=== PATIENT | female | born 1970 | race Two or more races ===

== ENCOUNTER 2021-07-27 15:23 | Emergency (ER) | payer OTHER ==
[~2021-07-27] VITALS: Ht 160 cm; Wt 74.8 kg
[~2021-07-27 15:23] MED LIST: VALTREX1000 MG; ZOLOFT100 MG
[2021-07-27] MEDS ORDERED: FLONASE16 GM NASAL (17:54)
[2021-07-27] MEDS ORDERED: SINGULAIR 10MG10 MG PO (17:54)
== END 2021-07-27 17:58 | disposition home or self-care (01) ==
LOC: ER 15:23
DX: J00 Acute nasopharyngitis [common cold] (principal); Z20.822 Contact with and (suspected) exposure to COVID-19

== ENCOUNTER 2021-08-25 10:23 | Emergency (ER) | payer OTHER ==
[~2021-08-25] VITALS: Ht 160 cm; Wt 73.0 kg
[~2021-08-25 10:23] MED LIST changes: +FLONASE16 GM NASAL; +SINGULAIR 10MG10 MG PO
== END 2021-08-25 18:43 | disposition home or self-care (01) ==
LOC: ER 10:23
DX: N83.201 Unspecified ovarian cyst, right side (principal); R10.2 Pelvic and perineal pain

== ENCOUNTER 2021-10-27 16:12 | Emergency (ER) | payer OTHER ==
[~2021-10-27] VITALS: Ht 160 cm; Wt 77.1 kg
== END 2021-10-27 22:47 | disposition home or self-care (01) ==
LOC: ER 16:12
DX: M77.9 Enthesopathy, unspecified (principal); M25.511 Pain in right shoulder

== ENCOUNTER → 2024-10-06 | Emergency (ER) | payer OTHER ==
[~2024-10-06] VITALS: Ht 160 cm; Wt 75.3 kg
[~2024-10-06] MED LIST changes: +FAMOtidine 10 MG/ML (4ML VIAL) IV STA
[2024-10-06 11:42] LABS: HEMATOCRIT 39.2 % (36.0-45.00); HEMOGLOBIN 13.5 g/dL (12.0-15.00); MEAN CELL VOLUME 89.9 fL (80.00-100.00); MEAN CORPUSCULAR HEMOGLOBIN 30.8 pg (27.00-32.0); MEAN CORPUSCULAR HGB CONC 34.3 g/dl (32.0-36.0); PLATELET COUNT 424 K/uL (150-450); RED BLOOD COUNT 4.36 M/uL (4.00-6.00); RED CELL DISTRIBUTION WIDTH 13.5 % (11.5-14.5)
[2024-10-06 12:04] LABS: CALCIUM 9.4 mg/dL (8.5-10.1); CREATININE SERUM 0.72 mg/dL (0.55-1.02); GFR 84.41; POTASSIUM 4.24 mEq/L (3.5-5.1)
== END | disposition home or self-care (01) ==
LOC: ER 09:43
PROVIDERS: General Practice
DX: K29.70 Gastritis, unspecified, without bleeding (principal)